=== PATIENT | male | born 1995 | race Caucasian/White ===

== ENCOUNTER 2018-03-07 13:17 | Emergency (ER) | payer OTHER ==
--- NOTE | 2018-03-07 13:47 | EDM.PDOC ---
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 He feels is large in the medial part of the right eye. There is no visual change. He has a sense of discomfort in the right eye. Onset: Today Location: Reports: Head Improves with: Reports: None Worsens with: Reports: None right eye Pain Score (Numeric/FACES): 4 - Related Data Allergies Allergy/AdvReac Type Severity Reaction Status Date / Time amoxicillin Allergy Hives Verified 03/07/18 14:11 Home Meds: Home Meds NK [No Known Home Meds] 03/07/18 [History] ED ROS GENERAL - Review of Systems Review Of Systems: See Below Constitutional: Reports: No Symptoms HEENT: Reports: Eye Pain Respiratory: Reports: No Symptoms Cardiovascular: Reports: No Symptoms GI/Abdominal: Reports: No Symptoms ED EXAM GENERAL W FULL EYE - Physical Exam Exam: See Below Exam Limited By: No Limitations General Appearance: Alert, No Apparent Distress. No: Anxious, Lethargic, Obtunded Eye Exam: Right Eye: Foreign Body, Bilateral Eye: EOMI (Equal alkaline movement) , PERRL (Pupils are equal and around) Visual Acuity (R) 20/: 30 Visual Acuity (L) 20/: 20 Eyelids: Bilateral: Normal Appearance Cornea Exam: Right: Corneal Abrasion (Abrasion in the 1 o'clock position), Left : Normal Appearance Extraocular Movements: Bilateral: Intact Ears: Normal External Exam Respiratory/Chest: No Respiratory Distress, Lungs Clear, Normal Breath Sounds, No Accessory Muscle Use Cardiovascular: Normal Peripheral Pulses, Regular Rate, Rhythm Neurological: Alert, Oriented, Normal Cognition, Normal Gait Psychiatric: Normal Affect Skin Exam: Intact, Normal Color Course - Vital Signs Text/Narrative:: Eyes assessedpupils are equal round and reactive to light. Post tetracaine eyelids were flipped swept by Q-tip Muorgan lens was used to irrigate the eye Flourescein staining of the eye shows an abrasion on the 1 o'clock position Phone call ophthalmology in 1:[address] Farmer returned call at 2:15 PM and she wants patient to go over to [place] to meet her today. Patient is informed instructions given. Address and phone number of physician given. Last Recorded V/S: Last Vital Signs Temp 36.7 C 03/07/18 13:25 Pulse 87 03/07/18 14:30 Resp 16 03/07/18 14:30 BP 120/58 L 03/07/18 14:30 Pulse Ox 100 03/07/18 13:25 Departure - Departure Time of Disposition: 14:28 Disposition: Home, Self-Care 01 Condition: Good Clinical Impression: Foreign body in eye Corneal abrasion Qualifiers: Encounter type: initial encounter Laterality: right Qualified Code(s): S05.01XA - Injury of conjunctiva and corneal abrasion without foreign body, right eye, initial encounter - Discharge Information *PRESCRIPTION DRUG MONITORING PROGRAM REVIEWED*: No *COPY OF PRESCRIPTION DRUG MONITORING REPORT IN PATIENT FINESSE: No Instructions: Eye Foreign Body, [id number] Referrals: PCP,Not In Area [Primary Care Provider] - Forms: ED Department Discharge Additional Instructions: Please go to [facility] Website Directions Save [address] [place] [address] Farmer Physician phone number [phone] - Problem List & Annotations (1) Foreign body in eye SNOMED Code(s): 285393258, [id number] Code(s): T15.90XA - FOREIGN BODY ON EXTERNAL EYE, PART UNSP, UNSP EYE, INIT Status: Acute - Problem List Review Problem List Initiated/Reviewed/Updated: Yes
== END 2018-03-07 14:35 | disposition home or self-care (01) ==
LOC: FB.ED 13:17
DX: S05.01XA Injury of conjunctiva and corneal abrasion without foreign body, right eye, initial encounter (principal); Z88.1 Allergy status to other antibiotic agents; X58.XXXA Exposure to other specified factors, initial encounter
CPT/HCPCS: 99283